=== PATIENT | female | born 1985 | race Caucasian/White ===

== ENCOUNTER 2016-10-28 10:52 | Emergency (ER) | payer BC ==
[2016-10-28 11:07] VITALS: BP 99/63
[2016-10-28] MEDS ORDERED: hydrOXYzine HCl 50 MG/ML SDV IM ONE (11:22)
[2016-10-28] MEDS ORDERED: Ketorolac 60 MG/2 ML SDV IM ONE (11:22)
[2016-10-28] MEDS ORDERED: Iopamidol 755 Mg/ML 100 ML Bottle IV ONE (11:51)
[2016-10-28] MEDS ORDERED: diphenhydrAMINE 50 MG/ML SDV IVPUSH ONE (13:09)
[2016-10-28] MEDS ORDERED: Triamcinolone Acetonide 40 MG/ML 1 ML MDV ONE (13:23)
--- NOTE | 2016-10-28 13:41 | ER ---
DATE SEEN: 10/28/2016 CHIEF COMPLAINT: Abdominal pain. HISTORY OF PRESENT ILLNESS: A 31-year-old female with abdominal pain for about a week, started in the right lower quadrant and now it is mostly in whole of the pelvis area, [id number] in intensity. She had mild nausea, but denies any fever, diarrhea, urinary symptoms, or . PAST MEDICAL HISTORY: IBS with constipation and anxiety. ALLERGIES: Aspirin, Advil, and oxycodone. PHYSICAL EXAMINATION: GENERAL: Well nourished. VITAL SIGNS: Her blood pressure is normal. Pulse is 77 and temp is 97.3. ABDOMEN: Soft with nonspecific diffuse tenderness in the lower quadrant, on the right. Bowel sounds are present. No masses. LABORATORY DATA: UA was negative. CBC showed a white cell count of 16,000. CT showed some colitis and a cyst in the ovary. IMPRESSIONS: Abdominal pain, generalized. PLAN: I initially gave her ketorolac, which helped her symptoms; however, she has an allergy to NSAIDs. She developed some stuffiness in the nose, congestion, and itching. I gave her Benadryl and Kenalog. Discharged her home in satisfactory condition with instructions to see Gogo Alcaraz tomorrow. To return to the ED with any worsening of symptoms. Time seen was noon. /[id number] ORLIN/MEGHNA
== END 2016-10-28 11:30 | disposition home or self-care (01) ==
LOC: FB.ED 10:52
DX: R10.84 Generalized abdominal pain (principal); K52.9 Noninfective gastroenteritis and colitis, unspecified; N83.202 Unspecified ovarian cyst, left side; K76.89 Other specified diseases of liver; N28.1 Cyst of kidney, acquired; Z97.5 Presence of (intrauterine) contraceptive device; K58.1 Irritable bowel syndrome with constipation; F41.9 Anxiety disorder, unspecified; Z88.6 Allergy status to analgesic agent; Z88.5 Allergy status to narcotic agent
CPT/HCPCS: 74177; 80048; 81001; 85025; 96372; 96374; 99284; J1200; J1885; J3301; J3410; Q9967